=== PATIENT | male | born 1945 | race African-American/Black ===

== ENCOUNTER 2025-01-13 18:14 | Emergency (ER) | payer OTHER ==
[~2025-01-13] VITALS: Ht 182.9 cm; Wt 82.0 kg
[2025-01-13 18:17] VITALS: BP 133/63; PULSE 90; RESP 18; TEMP 36.8; O2SAT 99
== END 2025-01-13 19:09 | disposition left against medical advice (07) ==
LOC: ER 18:14 → CANBEDREQ 18:55 → ER 19:09
DX: R55 Syncope and collapse (principal); Z53.29 Procedure and treatment not carried out because of patient's decision for other reasons
CPT/HCPCS: 93005; 99283